=== PATIENT | male | born 1930 | race Caucasian/White ===

== ENCOUNTER 2018-02-14 07:45 | Inpatient (IN) | payer OTHER ==
[~2018-02-14] VITALS: Ht 175.3 cm; Wt 68.1 kg
[~2018-02-14 07:45] MED LIST: ZOFRAN ODT4 MG PO
[2018-02-14 08:13] LABS: HEMATOCRIT 44.5 % (38.0-50.0); MCH 32.4 PG (29.0-34.0); MCHC 33.5 G/DL (30.0-36.0); MCV 96.7 FL (86-99); PLATELET COUNT 244 K/uL (156-360); RBC DIS.WIDTH-CV 13.2 % (11.8-14.6); RBC DIS.WIDTH-SD 47.8 % (39-53); WHITE BLOOD COUNT 8.4 K/uL (4.1-10.2)
[2018-02-14 08:21] LABS: HEMOGLOBIN 14.9 G/DL (12.5-16.6)
[2018-02-14 08:26] LABS: CHLORIDE 108 mEq/L (99-109); POTASSIUM 4.5 mEq/L (3.7-5.4); SODIUM 141 mEq/L (136-147)
[2018-02-14 08:27] LABS: GLUCOSE 99 mg/dL (70-99)
[2018-02-14 08:31] LABS: CREATININE 1.3 mg/dL (0.6-1.3); GFR ESTIMATE (CALCULATED) 56 mL/min/ (58.99-99999)
[2018-02-14 08:32] LABS: UREA NITROGEN (BUN) 20 mg/dL (9-23)
[2018-02-14 09:27] LABS: TROP-I INTERPRETATION NEGATIVE; TROPONIN-I 0.07 ng/mL (0.0-0.30)
[2018-02-14] MEDS ORDERED: ADULT ASPIRIN R81 MG PO (12:03)
[2018-02-14 16:10] LABS: TROP-I INTERPRETATION NEGATIVE; TROPONIN-I 0.06 ng/mL (0.0-0.30)
[2018-02-14 20:09] VITALS: BP 137/63
[2018-02-14 21:50] LABS: TROP-I INTERPRETATION NEGATIVE; TROPONIN-I 0.09 ng/mL (0.0-0.30)
[2018-02-15] VITALS (7 sets, daily range): BP systolic 90–128; BP diastolic 51–70
[2018-02-15 03:35] LABS: TROP-I INTERPRETATION NEGATIVE; TROPONIN-I 0.08 ng/mL (0.0-0.30)
[2018-02-15 10:20] LABS: CHLORIDE 104 MEQ/L (99-109); CREATININE 1.3 MG/DL (0.6-1.3); GFR ESTIMATE (CALCULATED) 56 mL/min/ (58.99-99999); POTASSIUM 4.5 MEQ/L (3.7-5.4); SODIUM 139 MEQ/L (136-147); UREA NITROGEN (BUN) 23 mg/dL (9-23)
[2018-02-15 10:21] LABS: GLUCOSE 153 mg/dL (70-99)
[2018-02-16 03:15] VITALS: BP 96/52
[2018-02-16 05:22] LABS: HEMATOCRIT 41.8 % (38.0-50.0); MCH 32.1 PG (29.0-34.0); MCHC 33.5 G/DL (30.0-36.0); MCV 95.9 FL (86-99); PLATELET COUNT 227 K/uL (156-360); RBC DIS.WIDTH-CV 13.1 % (11.8-14.6); RBC DIS.WIDTH-SD 46.2 % (39-53); RED BLOOD COUNT 4.36 M/uL (4.00-5.50); WHITE BLOOD COUNT 7.8 K/uL (4.1-10.2)
[2018-02-16 06:13] LABS: CHLORIDE 103 MEQ/L (99-109); CREATININE 1.5 MG/DL (0.6-1.3); GFR ESTIMATE (CALCULATED) 47 mL/min/ (58.99-99999); SODIUM 139 MEQ/L (136-147)
[2018-02-16 06:17] LABS: GLUCOSE 101 mg/dL (70-99); UREA NITROGEN (BUN) 39 mg/dL (9-23)
[2018-02-16 09:00] VITALS: BP 110/54
[2018-02-16 12:00] VITALS: BP 131/58
[2018-02-16 17:03] VITALS: BP 145/69
[2018-02-16 20:00] VITALS: BP 106/55
[2018-02-17 00:20] VITALS: BP 112/78
[2018-02-17 03:49] VITALS: BP 110/59
[2018-02-17 05:22] LABS: CHLORIDE 107 mEq/L (99-109); POTASSIUM 4.5 mEq/L (3.7-5.4); SODIUM 141 mEq/L (136-147)
[2018-02-17 05:23] LABS: GLUCOSE 91 mg/dL (70-99)
[2018-02-17 05:27] LABS: CREATININE 1.3 mg/dL (0.6-1.3); GFR ESTIMATE (CALCULATED) 56 mL/min/ (58.99-99999)
[2018-02-17 05:28] LABS: UREA NITROGEN (BUN) 43 mg/dL (9-23)
[2018-02-17 07:10] VITALS: BP 122/57
[2018-02-17 10:04] LABS: HEMOGLOBIN A1c (GLYCOHEMOGLOB) 5.1 % (Below 5.7)
[2018-02-17 14:14] VITALS: BP 123/58
[2018-02-17 20:18] VITALS: BP 130/62
[2018-02-17 22:32] VITALS: BP 112/58
[2018-02-18 03:56] VITALS: BP 114/61
[2018-02-18 07:37] VITALS: BP 128/59
[2018-02-18] MEDS ORDERED: NITROSTAT0.4 MG SL (08:40)
[2018-02-18] MEDS ORDERED: ATORVASTATIN CA40 MG PO (08:40)
[2018-02-18] MEDS ORDERED: METOPROLOL SUCC25 MG PO (08:40)
[2018-02-18] MEDS ORDERED: ASPIR-LOW81 MG PO (08:40)
[2018-02-18] MEDS ORDERED: COREG3.125 M1 PO (11:10)
[2018-02-18] MEDS ORDERED: LASIX20 MG PO (11:10)
[2018-02-18] MEDS ORDERED: LISINOPRIL2.5 MG PO (11:10)
== END 2018-02-18 11:59 | disposition home health service (06) | DRG 287 ==
LOC: EME 07:45 → 4EAST 11:50 → EDOF 11:50 → ENRESERV 11:58 → 4EAST 20:04
PROVIDERS: Emergency Medicine; Hospitalist; Physician Assistant; Physician Assistant Medical
PROC: B2151ZZ Fluoroscopy of Left Heart using Low Osmolar Contrast (ICD-10-PCS; principal; 2018-02-17)
PROC: B2111ZZ Fluoroscopy of Multiple Coronary Arteries using Low Osmolar Contrast (ICD-10-PCS; principal; 2018-02-17)
PROC: 4A023N7 Measurement of Cardiac Sampling and Pressure, Left Heart, Percutaneous Approach (ICD-10-PCS; principal; 2018-02-17)
DX: I50.21 Acute systolic (congestive) heart failure (principal); I25.110 Atherosclerotic heart disease of native coronary artery with unstable angina pectoris; I25.5 Ischemic cardiomyopathy; I95.9 Hypotension, unspecified; N18.3 Chronic kidney disease, stage 3 (moderate); C44.90 Unspecified malignant neoplasm of skin, unspecified; I08.3 Combined rheumatic disorders of mitral, aortic and tricuspid valves; J98.11 Atelectasis; Z93.3 Colostomy status; Z91.81 History of falling; Z90.49 Acquired absence of other specified parts of digestive tract; Z79.899 Other long term (current) drug therapy; Z79.82 Long term (current) use of aspirin; Z72.0 Tobacco use; Z85.048 Personal history of other malignant neoplasm of rectum, rectosigmoid junction, and anus
CPT/HCPCS: 71045; 71046; 80048; 83036; 83880; 84484; 85027; 93005; 93306; 99281; 99285; C1760; C1769; C1887; C1894; J1644; J1940; J2250; J3010; J7030